=== PATIENT | male | born 1945 | race Caucasian/White ===

== ENCOUNTER → 2023-08-21 07:20 | Outpatient (REF) | payer MEDICARE, SELFPAY | LOC: RAD 07:20 | PROVIDERS: ATTENDING PHYSICIAN Nurse Practitioner Family | DX: Z82.49 Family history of ischemic heart disease and other diseases of the circulatory system (principal) | CPT/HCPCS: 76770 ==

== ENCOUNTER 2024-11-04 13:50 | Emergency (ER) | payer MEDICARE, SELFPAY ==
[2024-11-04 14:00] VITALS: BP 143/93
--- NOTE | 2024-11-04 16:05 | ED.GENMED ---
History of Present Illness
<MILTON Turk - Last Filed: 11/05/24 23:17>
General
Chief Complaint: Dental Problem
Source: patient
Exam Limitations: none
Time Seen by Provider: 11/04/24 15:38
Nursing documentation reviewed up to this point in time: agreed with
History of Present Illness
History of Present Illness:
Patient is a 79-year-old male who is status post root canal 2 weeks ago to a central right lower tooth. Patient started with soreness to the right lateral jaw face about 1 week ago. He was given a second course of antibiotics, amoxicillin 5 days
ago(500 mg 3 times daily) however complains of persistent swelling. He complains of continued right-sided facial swelling and now is having difficulty opening his mouth fully. He denies any fever or chills. He was also recently seen by
[facility] and had x-rays. He was recommended to come to the ER by [facility] dentistry today.
Review of Systems
<MILTON Turk - Last Filed: 11/05/24 23:17>
Review of Systems
Allergies reviewed?: Yes
All Other Systems: ROS reviewed and negative except as documented in HPI and ROS
Constitutional: Denies fever, fatigue or chills
EENT: Reports other (right sided facial swelling )
Respiratory: Reports no symptoms; Denies trouble breathing
Phy Exam
<MILTON Turk - Last Filed: 11/05/24 23:17>
General Physical Exam
General Presentation: no apparent distress
General age: appears stated age
General Skin: warm and dry
General Habitus: normal
General Mental: alert
General Hydration: appears well hydrated
ENT Exam
ENT Exam: other (right sided facial swelling no erythema no obvious cavity or gum fluctuance ; mild /mod trismus no swelling under tongue no drooling tolerating secretions )
Cardiovascular Exam
Cardiovascular Exam: regular rate/rhythm, no murmur and normal peripheral pulses
Pulmonary Exam
Pulmonary Exam: lungs clear and no respiratory distress
Neurological Exam
Neurological Exam: alert and oriented x3
Musculoskeletal Exam
Musculoskeletal Exam: full ROM
Skin Exam
Skin Exam: normal color and warm/dry
Psychiatric Exam
Psychiatric Exam: normal mood/affect
Course
<MILTON Turk - Last Filed: 11/05/24 23:17>
Orders/Labs/Results
Orders:
Orders
11/04/24 16:03
CT Facial Bones W/ Iv Contrast Urgent
Comment:
Reason For Exam: right sided facial swelling
11/04/24 16:04
IV Insert/Care/Rem.- Treatment PRN
0.9% Sodium Chloride 1000 ml [Nss] 1,000 ml IV BOLUS
11/04/24 16:07
Complete Blood Count/With Diff Urgent
Comprehensive Metabolic Panel Urgent
11/04/24 20:22
Clindamycin HCl [Cleocin] 300 mg PO NOW STA
Abnormal Lab Results
11/04/24
16:07
RBC 4.59 L 10^6/uL
(4.70-6.10)
MCV 97.6 H fL
(80.0-94.0)
MCH 33.3 H pg
(27.0-31.0)
Absolute Lymphs (auto) 1.1 L 10^3/uL
(1.2-3.4)
Absolute Monos (auto) 0.7 H 10^3/uL
(0.1-0.6)
Lymphocytes % 18.1 L %
(20.5-51.1)
Monocytes % 12.1 H %
(1.7-9.3)
BUN 8 L mg/dl
(9-20)
11/04/24 16:07
11/04/24 16:07
Vital Signs
Initial and Last Documented VS:
Initial Vital Signs
Temp Pulse Resp BP Pulse Ox
98.2 F 73 20 143/93 98
11/04/24 14:00 11/04/24 14:00 11/04/24 14:00 11/04/24 14:00 11/04/24 14:00
Last Documented Vital Signs
Temp Pulse Resp BP Pulse Ox
98.4 F 70 18 135/84 98
11/04/24 16:00 11/04/24 16:24 11/04/24 16:24 11/04/24 16:24 11/04/24 16:24
Building Maintenance Custodian consulted with Physician
Building Maintenance Custodian consulted with physician?: Yes
Name of Physician Consulted: Brittani
<Tracie Peter MD - Last Filed: 11/04/24 20:27>
Orders/Labs/Results
Orders:
Orders
11/04/24 16:03
CT Facial Bones W/ Iv Contrast Urgent
Comment:
Reason For Exam: right sided facial swelling
11/04/24 16:04
IV Insert/Care/Rem.- Treatment PRN
0.9% Sodium Chloride 1000 ml [Nss] 1,000 ml IV BOLUS
11/04/24 16:07
Complete Blood Count/With Diff Urgent
Comprehensive Metabolic Panel Urgent
11/04/24 20:22
Clindamycin HCl [Cleocin] 300 mg PO NOW STA
Abnormal Lab Results
11/04/24
16:07
RBC 4.59 L 10^6/uL
(4.70-6.10)
MCV 97.6 H fL
(80.0-94.0)
MCH 33.3 H pg
(27.0-31.0)
Absolute Lymphs (auto) 1.1 L 10^3/uL
(1.2-3.4)
Absolute Monos (auto) 0.7 H 10^3/uL
(0.1-0.6)
Lymphocytes % 18.1 L %
(20.5-51.1)
Monocytes % 12.1 H %
(1.7-9.3)
BUN 8 L mg/dl
(9-20)
11/04/24 16:07
11/04/24 16:07
Vital Signs
Initial and Last Documented VS:
Initial Vital Signs
Temp Pulse Resp BP Pulse Ox
98.2 F 73 20 143/93 98
11/04/24 14:00 11/04/24 14:00 11/04/24 14:00 11/04/24 14:00 11/04/24 14:00
Last Documented Vital Signs
Temp Pulse Resp BP Pulse Ox
98.4 F 70 18 135/84 98
11/04/24 16:00 11/04/24 16:24 11/04/24 16:24 11/04/24 16:24 11/04/24 16:24
<MILTON Turk - Last Filed: 11/05/24 23:17>
MDM/Problems Addressed
Differential Diagnosis Includes:
Not limited to facial cellulitis, abscess
MDM/Problems Addressed:
As documented patient is a 79-year-old male who had working out 2 weeks ago and started with right-sided facial swelling several days ago. He was placed again on amoxicillin 500 mg 3 times a day on Friday and is due to complete that tomorrow. He
presents with increasing swelling and pain to the right jaw. CAT scan shows mild soft tissue swelling and subcutaneous edema over the right maxilla mandible right masseter muscle suggesting mild cellulitis. Patient however is not no acute distress
and afebrile with normal white count. Patient was eval by ED physician. I spoke with patient's dentist to send him here to the ER Dr. Kathy Roberson of [facility]. Will change antibiotic to clindamycin will give first dose here in the
ER and she will reevaluate patient on Friday. Pt is to return if any worsening of s/s.
<MILTON Turk - Last Filed: 11/05/24 23:17>
*Radiology
Radiology exam reviewed: radiology read reviewed
*Pulse Oximetry
SaO2: 98
Oxygen Mode of Delivery: Room air
Patient hypoxic: no
*Critical Care Note
Total Time (30-74mins, 75-104mins- exclusive of procedures): Not Applicable
ED Attending Note
<MILTON Turk - Last Filed: 11/05/24 23:17>
-
Portions of this chart may have been created with voice recognition software.� Occasional wrong word or��sound alike� substitutions may have occurred due to the inherent limitations of voice recognition software.
<Tracie Peter MD - Last Filed: 11/04/24 20:27>
ED Attending Note
Patient seen and examined by attending physician: Yes
I performed the substantive portion of visit, reviewed & personally made and approve the management plan that is documented in note by myself or DEWAYNE.: Yes
ED Attending Note:
This patient is a 79-year-old male status post root canal approximately 2 weeks ago. He recovered well from this. Then, about a week ago he noticed swelling and discomfort at the angle of the right mandible. He started amoxicillin on Friday. He
denies fever, chills, throat tightness, trouble swallowing, dyspnea, chest pain, submental swelling, headache, dizziness, sore throat, or other complaints. He does note that because of the discomfort it is sometimes more difficult to open his mouth
fully. Patient denies other complaints. On exam, he is extremely well-appearing, nontoxic, smiling, awake alert. He does have mild to moderate trismus, voice clear, tolerating secretions, no respiratory distress, no submental swelling, oropharynx
clear. There is very mild swelling noted at the angle of the right mandible without associated warmth,, fluctuance, redness. CT consistent with mild cellulitis. Will discuss with his dentist via telephone regarding plan and propose prompt
follow-up. Fortunately no abscess, Mily's, or impending airway compromise.
Discharge Plan
Departure
Patient Disposition: Home (Routine Discharge)
Date of Disposition: 11/04/24
Time of Disposition: 20:25
Patient with high blood pressure during this ER visit?: Yes
Condition: Fair
Covid-19: Not Applicable
Discharge Problem:
Cellulitis of face
Instructions: Cellulitis (skin infection) in adults - Discharge instructions, BLOOD PRESSURE
Prescriptions:
New
clindamycin HCl [Cleocin HCl] 300 mg capsule
300 mg PO Q6H Qty: 28 0RF
Referrals:
Maxx Arenas MD [Family Provider, Family Practice]
Activity Restrictions/Additional Instructions:
As discussed you may stop amoxicillin and start clindamycin. First dose was given here in the ER. Follow-up with your dentist on Friday for reevaluation however return if any worsening of symptoms if increased facial swelling pain fever chills
or any further concerns. Please also try and follow up and be evaluated by your pcp in the next 2 days for re- chec as well.
Interventions
Interventions:
*Risk Screen - Suicide Last Done: 11/04/24 14:00
*General Assessment Last Done: 11/04/24 16:22
*Neglect/Abuse Screening Last Done: 11/04/24 14:00
*ED- Fall Risk Assessment Last Done: 11/04/24 16:22
*ED COVID-19 Vaccine History Last Done: 11/04/24 16:22
*Nursing Disposition Last Done: 11/04/24 20:47
Discharge Date and Time
Discharge Date/Time: 11/04/24 20:48
Print Language: [id number]
[2024-11-04 16:08] VITALS: BMI 26.1
[2024-11-04] MEDS: NSS 1000 IV (16:08)
[2024-11-04 16:20] LABS: Hematocrit 44.8 % (39.0-52.0); Hemoglobin 15.3 g/dL (13.0-18.0); Mean Corp Hgb Conc. 34.2 g/dL (33.0-37.0); Mean Corpuscular Volume 97.6 fL (80.0-94.0); Nucleated Red Blood Cells % 0 % (-); Platelet Count 271 10^3/uL (130-400); Red Cell Dist. Width 12.6 % (11.5-14.5)
[2024-11-04 16:24] VITALS: BP 135/84
[2024-11-04 16:34] LABS: ALT (SGPT) 15 U/L (0-50); AST (SGOT) 17 U/L (17-59); Albumin 4.9 g/dl (3.5-5.0); Alkaline Phosphatase 56 U/L (38-126); Blood Urea Nitrogen 8 mg/dl (9-20); Calcium 9.7 mg/dl (8.4-10.2); Carbon Dioxide 28 mmol/L (22-30); Chloride 105 mmol/L (98-107); Estimated Creatinine Clearance 79 ml/min; Glucose 90 mg/dl (70-99); Potassium 4.4 mmol/L (3.5-5.1); Sodium 136 mmol/L (135-145); Total Protein 7.2 g/dl (6.3-8.2); eGFR > 60.00
[2024-11-04] MEDS: CLEOCIN 300 MG PO (20:29)
== END 2024-11-04 20:48 | disposition home or self-care (01) ==
LOC: EMR 13:50
PROVIDERS: Nurse Practitioner; EMERGENCY PHYSICIAN Emergency Medicine; FAMILY PHYSICIAN Family Medicine
DX: L03.211 Cellulitis of face (principal); K08.89 Other specified disorders of teeth and supporting structures
CPT/HCPCS: 99284; 96360; 70487; 80053; 85025; Q9967